=== PATIENT | male | born 1955 | race Caucasian/White ===

== ENCOUNTER → 2020-03-21 | Outpatient (CLI) | payer MEDICARE, OTHER ==
--- NOTE | 2020-03-22 11:19 | RADIOLOGY REPORT (SQ) ---
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 TECHNIQUE: Blood glucose level was verified. Above dose of FDG was injected intravenously. 2-D seg mented attenuation correction images were obtained from the base of the skull to the midthighs. Nonc ontrast CT images were obtained for attenuation correction and fusion with emission images. CT image s were performed without oral or intravenous contrast and are not sensitive for parenchymal lesions. A series of overlapping emission PET images were obtained. Images reviewed and manipulated at [facility] work station by the radiologist. Images stored on PACS. LIMITATIONS: None. FINDINGS: HEAD AND NECK: In the right pharyngeal tonsil, a 2.2 x 1.7 cm mass is present on axial neil ge 30, with SUV 13.3. A right level 2/level 3 lymph node (at the hyoid bone (is present, 3 x 2 cm on axial image 40 with HSAW V 16.9. This was previously biopsied. CHEST: No areas of abnormal metabolic activity in the chest. ABDOMEN AND PELVIS: There is an inflamed diverticulum along the sigmoid colon between the bladder dom e and colon, with a halo of increased activity SUV 6.4 on diffusion image 208. This could represent early changes of colovesical fistula. An inflamed diverticulum is present along the superior margin of the sigmoid colon on diffusion image 197, with SUV of 11.4. No adjacent abscess. PROXIMAL LOWER EXTREMITIES: No areas of abnormal metabolic activity in the soft tissues of the lower extremities. BONES: No abnormal metabolic activity in the visualized skeleton. ADDITIONAL CT FINDINGS: Heavily calcified coronary arteries and carotid bifurcations. Small hiatal h ernia. Noninflamed colonic diverticuli descending and sigmoid colon OTHER: Blood pool activity 1.7 SUV. Liver background activity 1.8 SUV. 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 Colon diverticular activity worrisome for diverticulitis. Inflammation between the sigmoid colon and bladder is present, which could represent early colovesical fistula formation TECHNICAL DOCUMENTATION: JOB ID: [id number] 2010 [employer]- All Rights Reserved Reading location - IP/workstation name: [email or web address]
== END ==
LOC: RAD 07:15
PROVIDERS: ATTEND Otolaryngology
DX: C09.9 Malignant neoplasm of tonsil, unspecified (principal)
CPT/HCPCS: 78815; A9552

== ENCOUNTER 2020-04-14 12:30 | Day surgery (SDC) | payer MEDICARE, OTHER ==
[~2020-04-14 12:30] MED LIST: CEFAZOLIN 1 GM/D5W RTU 1 GM/50 ML RTUPB IV ONE; CEFAZOLIN 1 GM/D5W RTU 1 GM/50 ML RTUPB IV PRN
[2020-04-14] MEDS ORDERED: PROPOFOL INJ 200 MG/20 ML VIAL IV ONE ×2 (13:34→13:54)
[2020-04-14] MEDS ORDERED: LIDOCAINE 1% INJ-PF (10 MG/ML) 30 ML SDV ONE (13:34)
--- NOTE | 2020-04-14 14:27 | Operative Report ---
Operative Report DATE OF SURGERY: 04/14/20 Operative Report: Pre-op diagnosis: History of tonsillar cancer awaiting chemoradiation Post-op diagnosis: 1. Normal EGD 2. Status post gastrostomy tube placement Surgery: Esophagogastroduodenoscopy with 20F gastrostomy tube placement Medications: As per anesthesia Tissue removed: None Procedure: After informed consent obtained from patient, the throat was sprayed with Hurricane and conscious sedation was achieved. The upper endoscope was inserted into the esophagus under direct vision and advanced into the stomach. The duodenum was entered and examined to the second part. Endoscope was then slowly pulled out of the patient as the mucosa was examined into details. An appropriate site was localized in the gastric body and over the abdominal wall. The abdominal wall was shaved, and prepped with Betadine. In the standard fashion a 20 [place] gastrostomy tube was then placed without any difficulty. Patient tolerated procedure well. Findings Esophagus: Normal Z-line at: 40 cm Antrum: Normal Body: Normal Fundus: Normal Duodenum first part: Normal Duodenum second part: Normal Plan: Follow-up as outpatient OPERATION: .
[2020-04-14] MEDS ORDERED: HYDROMORPHONE HCL INJ/PF 2 MG/ML AMPULE ONE (14:35)
[2020-04-14 14:46] VITALS: BP 125/66
[2020-04-14] MEDS ORDERED: HYDROMORPHONE HCL INJ/PF 2 MG/ML AMPULE IV ONE (15:00)
== END 2020-04-14 15:35 | disposition home or self-care (01) ==
LOC: END 12:30
PROVIDERS: ATTEND Internal Medicine Gastroenterology
DX: R13.10 Dysphagia, unspecified (principal); C09.9 Malignant neoplasm of tonsil, unspecified; K57.30 Diverticulosis of large intestine without perforation or abscess without bleeding; Z03.818 Encounter for observation for suspected exposure to other biological agents ruled out; Z86.010 Personal history of colon polyps
CPT/HCPCS: 43246; 00731; U0003; J0690; J3490; J1170; J2704; C9803; 731; 87635

== ENCOUNTER → 2020-06-30 | Outpatient (CLI) | payer MEDICARE, OTHER ==
--- NOTE | 2020-06-30 15:59 | RADIOLOGY REPORT (SQ) ---
EXAM DESCRIPTION: UGI W/ SINGLE CONTRAST IMAGES COMPLETED DATE/TIME: 06/30/2020 9:32 am REASON FOR STUDY: D53.9 NUTRITIONAL ANEMIA, UNSPECIFIED D53.9 NUTRITIONAL ANEMIA, UNSPECIFIED K92.1 MELENA COMPARISON: None. TECHNIQUE: Thin barium instilled through an indwelling gastrostomy tube. Fluoroscopic spot images a nd routine radiographic images acquired and stored on PACS. 12 MM BARIUM TABLET GIVEN: No LIMITATIONS: None. FLUOROSCOPY TIME: FLUORO TIME: 2.6 minutes 18 images saved to PACS. FINDINGS: ESOPHAGEAL MOTILITY: Not applicable ESOPHAGEAL MUCOSA: Not applicable GASTRO-ESOPHAGEAL JUNCTION: Small hiatal hernia present. Mild gastroesophageal reflux seen. STOMACH: Normal without masses or ulcerations. GASTRIC OUTLET: No delay in emptying. Normal pylorus. DUODENAL BULB: Normal distention. No spasm or ulceration. DUODENUM: Mucosa normal. No extrinsic masses or malrotation. PROXIMAL JEJUNUM: Normal mucosal pattern. No dilatation, segmentation, strictures or masses. NON-GI TRACT STRUCTURES: No significant finding. OTHER: No other significant finding. IMPRESSION: SMALL HIATAL HERNIA WITH MILD GASTROESOPHAGEAL REFLUX. OTHERWISE UNREMARKABLE STUDY. COMMENT: NONE Quality ID [id number]: Final reports for procedures using fluoroscopy that document radiation exposure bob crescencio, or exposure time and number of fluorographic images (if radiation exposure indices are not avail able) TECHNICAL DOCUMENTATION: JOB ID: [id number] 2010 [employer]- All Rights Reserved Reading location - IP/workstation name: [email or web address] [id number]
== END ==
LOC: RAD 08:22
PROVIDERS: ATTEND Internal Medicine Gastroenterology
DX: K92.1 Melena (principal); D53.9 Nutritional anemia, unspecified; K21.9 Gastro-esophageal reflux disease without esophagitis; K44.9 Diaphragmatic hernia without obstruction or gangrene
CPT/HCPCS: 74240

== ENCOUNTER 2020-07-06 10:15 | Emergency (ER) | payer MEDICARE, OTHER ==
--- NOTE | 2020-07-06 10:55 | ER Document Report ---
ED Medical Screen (RME) - General Chief Complaint: Syncope Stated Complaint: SYNCOPE Time Seen by Provider: 07/06/20 10:49 Primary Care Provider: CATHRYN HONG MD [Primary Care Provider] - Follow up as needed Mode of Arrival: Ambulatory Information source: Patient Notes: 65-year-old male presented to ED for complaint of passing out twice today. He states he does have tonsillar cancer and is been having treatment for the tonsillar cancer has not had any in the last month. They did not remove the tonsils. He states his oncologist is Dr. Gresham in [place]. He is a former smoker does not has not smoked in about 30 years. He is alert oriented respirations regular nonlabored speaking in full sentences. I have greeted and performed a rapid initial assessment of this patient. A comprehensive ED assessment and evaluation of the patient, analysis of test results and completion of medical decision making process will be conducted by an additional ED providers. - Related Data Allergies/Adverse Reactions: No Known Allergies Allergy (Verified 07/06/20 10:49) Home Medications: Propazole 40mg BID Past Medical History - Social History Chew tobacco use (# tins/day): No Frequency of alcohol use: None Drug Abuse: None - Past Medical History Cardiac Medical History: Denies: Hx Coronary Artery Disease, Hx Heart Attack, Hx Hypertension Pulmonary Medical History: Denies: Hx Asthma, Hx Bronchitis, Hx COPD, Hx Pneumonia Neurological Medical History: Denies: Hx Cerebrovascular Accident, Hx Seizures Musculoskeltal Medical History: Denies Hx Arthritis - Immunizations Hx Diphtheria, Pertussis, Tetanus Vaccination: No Physical Exam - Vital signs Vitals: Temp Pulse Resp BP Pulse Ox 98.3 F 119 H 20 120/79 98 07/06/20 10:22 07/06/20 10:22 07/06/20 10:22 07/06/20 10:22 07/06/20 10:22 Course - Vital Signs Vital signs: Temp Pulse Resp BP Pulse Ox 98.3 F 119 H 20 120/79 98 07/06/20 10:22 07/06/20 10:22 07/06/20 10:22 07/06/20 10:22 07/06/20 10:22 Doctor's Discharge - Discharge Referrals: CATHRYN HONG MD [Primary Care Provider] - Follow up as needed
[2020-07-06 11:25] LABS: ABSOLUTE LYMPHOCYTES (AUTO) 1.2 10^3/uL (0.5-4.7); ABSOLUTE MONOCYTES (AUTO) 0.7 10^3/uL (0.1-1.4); ABSOLUTE NEUT (AUTO) 6.8 10^3/uL (1.7-8.2); BASOPHILS % (AUTO) 0.3 % (0-2); EOSINOPHILS % (AUTO) 0.2 % (0-6); HEMATOCRIT 29.5 % (37.9-51.0); HEMOGLOBIN 10.3 g/dL (13.5-17.0); INTERNATIONAL RATION (INR) 1.08; LYMPHOCYTES % (AUTO) 13.7 % (13-45); MEAN CORPUSCULAR HEMOGLOBIN 31.4 pg (27.0-33.4); MEAN CORPUSCULAR HGB CONC 35.1 g/dL (32.0-36.0); MEAN CORPUSCULAR VOLUME 90 fl (80-97); MONOCYTES % (AUTO) 7.6 % (3-13); PLATELET COUNT 226 10^3/uL (150-450); PROTHROMBIN TIME 14.2 SEC (11.4-15.4); RED BLOOD COUNT 3.29 10^6/uL (4.35-5.55); RED CELL DISTRIBUTION WIDTH 18.7 % (11.5-14.0); SEGMENTED NEUTROPHILS % (AUTO) 78.2 % (42-78); TOTAL CELLS COUNTED % (AUTO) 100 %; WHITE BLOOD COUNT 8.8 10^3/uL (4.0-10.5)
[2020-07-06 11:26] LABS: PARTIAL THROMBOPLASTIN TIME 29.2 SEC (23.5-35.8)
[2020-07-06 11:31] LABS: APPEARANCE,URINE SLIGHTLY-CLOUDY; BILIRUBIN,URINE NEGATIVE (NEGATIVE); COLOR,URINE AMBER; GLUCOSE, URINE NEGATIVE (NEGATIVE); KETONES,URINE NEGATIVE (NEGATIVE); LEUKOCYTE ESTERASE,URINE NEGATIVE (NEGATIVE); NITRITE,URINE NEGATIVE (NEGATIVE); PROTEIN,URINE 100 mg/dL (NEGATIVE); URINE SPECIFIC GRAVITY 1.025; UROBILINOGEN,URINE NEGATIVE mg/dL (<2.0)
[2020-07-06 11:42] LABS: ALBUMIN 3.8 g/dL (3.5-5.0); ALKALINE PHOSPHATASE 70 U/L (38-126); ANION GAP 11 (5-19); ASPARTATE AMINO TRANSFERASE 28 U/L (17-59); BILIRUBIN,DIRECT 0.3 mg/dL (0.0-0.4); BILIRUBIN,TOTAL 0.9 mg/dL (0.2-1.3); BLOOD UREA NITROGEN 32 mg/dL (7-20); CALCIUM 9.5 mg/dL (8.4-10.2); CARBON DIOXIDE 25 mmol/L (22-30); CHLORIDE 102 mmol/L (98-107); GLUCOSE 162 mg/dL (75-110); POTASSIUM 4.4 mmol/L (3.6-5.0); TOTAL PROTEIN 7.4 g/dL (6.3-8.2)
[2020-07-06] MEDS ORDERED: NORMAL SALINE 1000 ML 1,000 ML IV ONE ×2 (11:49→13:34)
[2020-07-06 11:51] LABS: URINE AMPHETAMINES SCREEN NEGATIVE; URINE BARBITURATES SCREEN NEGATIVE; URINE BENZODIAZEPINES SCREEN NEGATIVE; URINE COCAINE SCREEN NEGATIVE; URINE MARIJUANA (THC) SCREEN NEGATIVE; URINE METHADONE SCREEN NEGATIVE; URINE PHENCYCLIDINE SCREEN NEGATIVE
--- NOTE | 2020-07-06 11:51 | RADIOLOGY REPORT (SQ) ---
EXAM DESCRIPTION: CT HEAD WITHOUT IMAGES COMPLETED DATE/TIME: 07/06/2020 11:36 am REASON FOR STUDY: syncope tonsil cancer COMPARISON: None. TECHNIQUE: Axial images acquired through the brain without intravenous contrast. Images reviewed wi th bone, brain and subdural windows. Additional sagittal and coronal reconstructions were generated. Images stored on PACS. All CT scanners at this facility use dose modulation, iterative reconstruction, and/or weight based d osing when appropriate to reduce radiation dose to as low as reasonably achievable (ALARA). [facility]: Dose Right [facility]: CareDose [facility]: Dose Right [facility]: Teradose 4D [facility]: [employer] RADIATION DOSE: CT Rad equipment meets quality standard of care and radiation dose reduction techniq ues were employed. CTDIvol: 53.2 mGy. DLP: 1044 mGy-cm. mGy. LIMITATIONS: None. FINDINGS: VENTRICLES: Normal size and contour. CEREBRUM: No masses. No hemorrhage. No midline shift. No evidence for acute infarction. Normal gra y/white matter differentiation. No areas of low density in the white matter. CEREBELLUM: No masses. No hemorrhage. No alteration of density. No evidence for acute infarction. EXTRAAXIAL SPACES: No fluid collections. No masses. ORBITS AND GLOBE: No intra- or extraconal masses. Normal contour of globe without masses. CALVARIUM: No fracture. PARANASAL SINUSES: No fluid or mucosal thickening. SOFT TISSUES: No mass or hematoma. OTHER: No other significant finding. IMPRESSION: NORMAL BRAIN CT WITHOUT CONTRAST. EVIDENCE OF ACUTE STROKE: NO. COMMENT: Quality ID # [id number]: Final reports with documentation of one or more dose reduction techniques (e.g., Automated exposure control, adjustment of the mA and/or kV according to patient size, use of iterative reconstruction technique) TECHNICAL DOCUMENTATION: JOB ID: [id number] 2010 [employer]- All Rights Reserved Reading location - IP/workstation name: [email or web address]
--- NOTE | 2020-07-06 12:42 | ER Document Report ---
Entered by THA VERMA SCRIBE 07/06/20 1149 Acting as scribe for:GABI SILVEIRA MD ED General - General Chief Complaint: Syncope Stated Complaint: SYNCOPE Time Seen by Provider: 07/06/20 10:49 Primary Care Provider: CATHRYN HONG MD [Primary Care Provider] - Follow up as needed Mode of Arrival: Ambulatory Information source: Patient Notes: This 65 year old male patient s/p radiation ahd chemotherapy for tonsillar cancer presents to the emergency department today with complaints of two syncopal episodes prior to arrival. states that she was awoken to her calling her name and she found him lying flat on his back on he bathroom floor. Patient reports that he remembers getting up to go to the bathroom but doesn't remember much else. reports that when she got to the patient she sat him up on the edge of the bathtub and shortly after sitting him up he "became unresponsive and wouldn't answer" so after a few seconds she lied him down again on the floor and he began responding appropriately again. - Related Data Allergies/Adverse Reactions: No Known Allergies Allergy (Verified 07/06/20 10:49) Home Medications: Propazole 40mg BID Past Medical History - General Information source: Patient - Social History Smoking Status: Former Smoker Chew tobacco use (# tins/day): No Frequency of alcohol use: None Drug Abuse: None Lives with: Family Family History: Reviewed & Not Pertinent Patient has homicidal ideation: No Malignancy Medical History: Reports Other - right tonsil Past Surgical History: Reports: Hx Abdominal Surgery - Gastrostomy tube, Other - Port-A-Cath - Immunizations Hx Diphtheria, Pertussis, Tetanus Vaccination: No Review of Systems - Review of Systems Constitutional: No symptoms reported EENT: No symptoms reported Cardiovascular: See HPI, Syncope Respiratory: No symptoms reported Gastrointestinal: No symptoms reported Genitourinary: No symptoms reported Male Genitourinary: No symptoms reported Musculoskeletal: No symptoms reported Skin: No symptoms reported Hematologic/Lymphatic: No symptoms reported Neurological/Psychological: No symptoms reported -: Yes All other systems reviewed and negative Physical Exam - Vital signs Vitals: Temp Pulse Resp BP Pulse Ox 98.3 F 119 H 20 120/79 98 07/06/20 10:22 07/06/20 10:22 07/06/20 10:22 07/06/20 10:22 07/06/20 10:22 - Notes Notes: Physical Exam: General: Alert, hoarse voice. HEENT: Normocephalic. Atraumatic. PERRL. Extraocular movements intact. Oropharynx clear. Class III mallampati score, can barely see uvula. Dry mucous membranes. Neck: Supple. Non-tender. Respiratory: No respiratory distress. Clear and equal breath sounds bilaterally. Cardiovascular: Tachycardic, regular rhythm. Abdominal: Feeding tube in place. Non-tender. No distension. Normal Bowel Sounds. Back: No gross abnormalities. Extremities: Moves all four extremities. Upper extremities: Normal inspection. Normal ROM. Lower extremities: Normal inspection. No edema. Normal ROM. Neurological: Normal cognition. AAOx4. Normal speech. Psychological: Normal affect. Normal Mood. Skin: Warm. Dry. Normal color. Course - Vital Signs Vital signs: Temp Pulse Resp BP Pulse Ox 98.3 F 119 H 16 133/86 H 97 07/06/20 10:22 07/06/20 10:22 07/06/20 13:01 07/06/20 13:00 07/06/20 13:01 - Laboratory Result Diagrams: 07/06/20 11:02 07/06/20 11:02 Laboratory results interpreted by me: 07/06/20 07/06/20 07/06/20 11:02 11:02 11:02 RBC 3.29 L Hgb 10.3 L Hct 29.5 L RDW 18.7 H Seg Neutrophils % 78.2 H BUN 32 H Glucose 162 H Urine Protein 100 H Urine Ascorbic Acid 40 H - Diagnostic Test Radiology reviewed: Reports reviewed - CT shows a normal noncontrasted brain. - EKG Interpretation by [place] EKG shows normal: Sinus rhythm, [place], Intervals, QRS Complexes, ST-T Waves Rate: Tachycardia - 110 [place]/QRS: Left axis deviation When compared to previous EKG there are: Previous EKG unavailable Discharge - Discharge Clinical Impression: Syncope and collapse, Dehydration Condition: Stable Disposition: HOME, SELF-CARE Additional Instructions: Syncopal Episode Syncope (fainting or near-fainting) can occur from many different health problems. Or it can be a simple fainting spell requiring no treatment. It is safe for you to go home, but further evaluation will likely be necessary. Your work-up may include tests for internal bleeding, heart disease, medication problems, or near-strokes. Tests are not always required, however, depending on the nature of your problem. The warning signs of an impending faint include: dizziness, li ghtheadedness, nausea, hot flashes, tingling, and weakness. If this happens, lay down and put your feet up, then wait until all of these symptoms have passed before standing up again. If these episodes become recurrent, or if you develop chest pain, heart palpitations, mental confusion, blurred vision, or headache, then you should call the physician, or go to the emergency room. Dehydration Dehydration can result from vomiting or diarrhea, fever, or decreased intake of fluids. If severe, hospitalization and intravenous fluids may be required. Most cases are treated at home with fluids by mouth. For the next 24 hours, drink lots of clear fluids. In mild cases, this can be soda pop or sports drinks. For more severe dehydration, the doctor may recommend special fluids such as Pedialyte or Lytren. Try to get three liters (3 quarts) of fluid per day. If vomiting occurs, continue to drink the fluids frequently (every 15 to 20 minutes), but in small amounts (one or two ounces). Depending on the type of dehydration, the doctor may prescribe antinausea medicine or potassium replacements. Call the doctor or return for re-examination if you become progressively weak, vomit repeatedly, or have other new symptoms. Your syncopal episodes this morning when you got up were most likely due to volume depletion, this is a common problem for people, especially as they get older. Be sure to increase your fluid intake throughout the day in the evening to prevent this from happening again. Follow-up with your primary care provider as needed. RETURN TO THE EMERGENCY ROOM IF ANY NEW OR WORSENING SYMPTOMS. Referrals: CATHRYN HONG MD [Primary Care Provider] - Follow up as needed I personally performed the services described in the documentation, reviewed and edited the documentation which was dictated to the scribe in my presence, and it accurately records my words and actions.
[2020-07-06 14:49] VITALS: BP 138/82
--- NOTE | 2020-07-06 18:14 | EKG REPORT ---
SEVERITY:- OTHERWISE NORMAL ECG - SINUS TACHYCARDIA LEFT AXIS DEVIATION : Confirmed by: Castillo Nolasco MD 06-Jul-2020 18:13:37
== END 2020-07-06 15:00 | disposition home or self-care (01) ==
LOC: ER 10:15
DX: R55 Syncope and collapse (principal); E86.0 Dehydration; Z93.1 Gastrostomy status; Z79.899 Other long term (current) drug therapy; Z92.3 Personal history of irradiation; Z92.21 Personal history of antineoplastic chemotherapy; Z85.818 Personal history of malignant neoplasm of other sites of lip, oral cavity, and pharynx; Z87.891 Personal history of nicotine dependence
CPT/HCPCS: 93005; 36591; 99285; 96360; 96361; 36415; 83690; 85025; 85610; 85730; 80053; 81001; 84484; 80307; 83036; 70450; 93010; J7030; J1642

== ENCOUNTER 2020-09-07 02:47 | Emergency (ER) | payer MEDICARE, OTHER ==
--- NOTE | 2020-09-07 03:31 | ER Document Report ---
ED General - General Chief Complaint: Syncope Stated Complaint: PASSED OUT PRIOR TO ARRIVAL Time Seen by Provider: 09/07/20 03:30 Primary Care Provider: CATHRYN HONG MD [Primary Care Provider] - Follow up as needed - HPI Notes: 65-year-old male presents following syncopal event at home. Patient states that he got up to use the restroom, after urinating he started to walk back to his bed, he felt dizzy, he sat down and then had a syncopal event. He estimates he was out for about 1 minute. He did not fall or hit his head. He had a similar event in July. Patient states that he frequently gets dehydrated and that was the presumed cause last time. Patient states that he is concerned may be h is electrolytes are off as well. Patient states that he frequently experiences dizziness when he goes from sitting to standing. He has a history of throat cancer and has a PEG tube, he is not currently on chemotherapy. Per EMS he had positive orthostatics, he apparently dropped to 77 systolic with standing. Patient denies chest pain or shortness of breath. He denied any preceding chest pain or shortness of breath. - Related Data Allergies/Adverse Reactions: No Known Allergies Allergy (Verified 07/06/20 10:49) Past Medical History - General Information source: Patient - Social History Smoking Status: Never Smoker Family History: Reviewed & Not Pertinent - Past Medical History Cardiac Medical History: Denies: Hx Coronary Artery Disease, Hx Heart Attack, Hx Hypertension Pulmonary Medical History: Denies: Hx Asthma, Hx Bronchitis, Hx COPD, Hx Pneumonia Neurological Medical History: Denies: Hx Cerebrovascular Accident, Hx Seizures Musculoskeletal Medical History: Denies Hx Arthritis Past Surgical History: Reports: Hx Abdominal Surgery - Gastrostomy tube, Other - Port-A-Cath - Immunizations Hx Diphtheria, Pertussis, Tetanus Vaccination: No Review of Systems - Review of Systems Constitutional: denies: See HPI, Fever EENT: No symptoms reported Cardiovascular: denies: Chest pain Respiratory: denies: Cough, Short of breath Gastrointestinal: denies: Abdominal pain Genitourinary: No symptoms reported Male Genitourinary: No symptoms reported Musculoskeletal: No symptoms reported Skin: No symptoms reported Hematologic/Lymphatic: No symptoms reported Neurological/Psychological: denies: Weakness, Numbness Physical Exam - General General appearance: Appears well, Alert In distress: None - HEENT Head: Normocephalic, Atraumatic Extraocular movements intact: Yes Pupils: PERRL Neck: Supple - Respiratory Chest status: Nontender, Other - port to R chest wall, nontender, no erythema Breath sounds: Normal - Cardiovascular Rhythm: Regular Heart sounds: Normal auscultation Normal capillary refill: Yes - Abdominal Tenderness: Nontender - Extremities General upper extremity: Normal ROM General lower extremity: Normal ROM. No: Edema - Neurological Neuro grossly intact: Yes Cognition: Normal Orientation: AAOx4 Speech: Normal Cranial nerves: Normal Motor strength normal: LUE, RUE, LLE, RLE Sensory: Normal - Psychological Associated symptoms: Normal affect - Skin Skin Temperature: Warm Course - Re-evaluation Re-evalutation: 65-year-old male history of throat cancer not currently on chemo here after syncopal event after home after urinating. Sounds like he has some underlying orthostasis given his description of daily dizziness when standing. EMS found him to be orthostatic as well. Will provide 1 L of fluids. He is currently well-appearing with stable vitals, no evidence of head trauma, he is neurolog ically intact, lungs are clear and heart RRR. Will check basic labs to assure that no electrolyte abnormality is present. Check chest x-ray to rule out occult consolidation. 09/07/20 05:15 No leukocytosis or left shift. Hemoglobin similar to previous. Sodium, potassium and magnesium within normal limits. Slightly high phosphorus. Creatinine within normal limits. No elevation of T bili or LFTs. Troponin negative. Chest x-ray without consolidation. 09/07/20 05:29 Patient was updated on results. Continues to be well-appearing and denies complaints. He states he feels comfortable going home. I discussed with him need to have close of the primary care doctor as he is having these recurrent episodes, verbalized understanding. Return precautions given, stable at time of discharge. - Laboratory Result Diagrams: 09/07/20 03:21 12 03:21 Laboratory results interpreted by me: 09/07/20 09/07/20 09/07/20 03:21 03:21 03:21 RBC 3.21 L Hgb 10.7 L Hct 29.7 L RDW 15.3 H Lymph % (Auto) 10.9 L Sodium 136.8 L BUN 26 H Glucose 146 H Phosphorus 5.2 H Creatine Kinase 22 L - Diagnostic Test Radiology reviewed: Image reviewed, Reports reviewed - EKG Interpretation by Me Additional EKG results interpreted by me: EKG is interpreted by me. Sinus rhythm, rate 91. Appears to be intraventricular conduction delay given the slightly widened QRS. No ST segment elevation. EKG is grossly similar to previous. Discharge - Discharge Clinical Impression: Orthostatic dizziness Disposition: HOME, SELF-CARE Additional Instructions: Please have close follow-up with your primary care doctor. Return to the emergency department for any concerning worsening symptoms. Referrals: CATHRYN HONG MD [Primary Care Provider] - Follow up as needed
[2020-09-07 03:35] LABS: ABSOLUTE EOSINOPHILS # (AUTO) 0.2 10^3/uL (0.0-0.6); ABSOLUTE LYMPHOCYTES (AUTO) 0.7 10^3/uL (0.5-4.7); ABSOLUTE MONOCYTES (AUTO) 0.7 10^3/uL (0.1-1.4); ABSOLUTE NEUT (AUTO) 5.2 10^3/uL (1.7-8.2); BASOPHILS % (AUTO) 0.2 % (0-2); EOSINOPHILS % (AUTO) 2.5 % (0-6); HEMATOCRIT 29.7 % (37.9-51.0); HEMOGLOBIN 10.7 g/dL (13.5-17.0); LYMPHOCYTES % (AUTO) 10.9 % (13-45); MEAN CORPUSCULAR HEMOGLOBIN 33.2 pg (27.0-33.4); MEAN CORPUSCULAR HGB CONC 35.9 g/dL (32.0-36.0); MEAN CORPUSCULAR VOLUME 93 fl (80-97); MONOCYTES % (AUTO) 9.7 % (3-13); PLATELET COUNT 185 10^3/uL (150-450); RED BLOOD COUNT 3.21 10^6/uL (4.35-5.55); RED CELL DISTRIBUTION WIDTH 15.3 % (11.5-14.0); SEGMENTED NEUTROPHILS % (AUTO) 76.7 % (42-78); TOTAL CELLS COUNTED % (AUTO) 100 %; WHITE BLOOD COUNT 6.8 10^3/uL (4.0-10.5)
[2020-09-07] MEDS ORDERED: RINGERS SOLUTION,LACTATED 1,000 ML IV ONE (03:40)
[2020-09-07 03:57] LABS: CREATINE KINASE MB 0.49 ng/mL (<4.55)
[2020-09-07 03:59] LABS: TROPONIN I < 0.012 ng/mL
[2020-09-07 04:00] LABS: ALBUMIN 3.9 g/dL (3.5-5.0); ALKALINE PHOSPHATASE 66 U/L (38-126); ANION GAP 9 (5-19); ASPARTATE AMINO TRANSFERASE 23 U/L (17-59); BILIRUBIN,DIRECT 0.1 mg/dL (0.0-0.4); BILIRUBIN,TOTAL 0.6 mg/dL (0.2-1.3); BLOOD UREA NITROGEN 26 mg/dL (7-20); CALCIUM 9.7 mg/dL (8.4-10.2); CARBON DIOXIDE 29 mmol/L (22-30); CHLORIDE 99 mmol/L (98-107); CREATINE KINASE 22 U/L (55-170); GLUCOSE 146 mg/dL (75-110); TOTAL PROTEIN 7.3 g/dL (6.3-8.2)
[2020-09-07 04:01] LABS: PHOSPHORUS 5.2 mg/dL (2.5-4.5)
--- NOTE | 2020-09-07 04:40 | RADIOLOGY REPORT (SQ) ---
CLINICAL HISTORY: eval consolidation COMPARISON: None. 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 Lungs are clear without consolidation, atelectasis, mass or edema. There is no pleural effusion. There is no pneumothorax. There are no acute osseous findings. Right chest port catheter tip is in the mid SVC. IMPRESSION: Clear lungs.
[2020-09-07 05:59] VITALS: BP 121/74
--- NOTE | 2020-09-07 17:47 | EKG REPORT ---
SEVERITY:- ABNORMAL ECG - SINUS RHYTHM INCOMPLETE RBBB AND LAFB BORDERLINE R WAVE PROGRESSION, ANTERIOR LEADS : Confirmed by: Tru Dobson MD 07-Sep-2020 17:47:08
== END 2020-09-07 05:59 | disposition home or self-care (01) ==
LOC: ER 02:47
DX: I95.1 Orthostatic hypotension (principal); R42 Dizziness and giddiness
CPT/HCPCS: 93005; 99285; 96360; 96361; 36415; 82553; 82550; 83735; 84100; 85025; 80053; 84484; 71045; 93010; J7120; J1642